=== PATIENT | male | born 1955 | race Caucasian/White ===

== ENCOUNTER → 2020-07-19 | Outpatient (CLI) | payer MEDICARE, OTHER | LOC: KOH-I 06-08 11:00 → EMI 14:30 → KOH-I 14:30 → EMI 15:18 | DX: M51.36 Other intervertebral disc degeneration, lumbar region (principal); M48.061 Spinal stenosis, lumbar region without neurogenic claudication; M46.96 Unspecified inflammatory spondylopathy, lumbar region | CPT/HCPCS: 72148 ==

== ENCOUNTER → 2021-03-06 | Outpatient (CLI) | payer MEDICARE, OTHER | LOC: KOH-I 02-21 10:30 | DX: F17.210 Nicotine dependence, cigarettes, uncomplicated (principal); R91.8 Other nonspecific abnormal finding of lung field | CPT/HCPCS: 71271 ==